=== PATIENT | female | born 1960 | race Caucasian/White ===

== ENCOUNTER 2018-02-01 12:00 | Emergency (ER) | payer MEDICARE, OTHER ==
[2018-02-01] MEDS ORDERED: Sodium Chloride 0.9% 10 ML Syringe FLUSH PRN (12:03)
[2018-02-01] MEDS ORDERED: Sodium Chloride 0.9% 2.5 ML Syringe FLUSH PRN (12:03)
--- NOTE | 2018-02-01 12:06 | EDM.PDOC ---
ED HPI GENERAL MEDICAL PROBLEM - General Stated Complaint: FELL AND HIT HER HEAD Time Seen by Provider: 02/01/18 12:04 Source of Information: Reports: Patient History Limitations: Reports: No Limitations - History of Present Illness INITIAL COMMENTS - FREE TEXT/NARRATIVE: HISTORY AND PHYSICAL: []57-year-old female presenting by EMS History of Present Illness: []Patient was picking up her medications at [facility] slipped on the ice and fell striking the right side of the back of her head Review of Systems: As per history of present illness and below otherwise all systems reviewed and negative. Past medical history: As per history of present illness and as reviewed below otherwise noncontributory. Surgical history: As per history of present illness and as reviewed below otherwise noncontributory. Social history: No reported history of drug or alcohol abuse. Family history: As per history of present illness and as reviewed below otherwise noncontributory. Physical exam: Alert and oriented female answering questions appropriately in full sentences no shortness breath noted. EOMs intact. Pain 7/10. HEENT: Atraumatic, normocehpalic, pupils reactive, negative for conjunctival pallor or scleral icterus, mucous membranes moist, throat clear, neck supple, nontender, trachea midline. Lungs: Clear to auscultation, breath sounds equal bilaterally, chest non tender. Heart: S1S2, regular, negative for clicks, rubs, or JVD. Abdomen: Soft, nondistended, nontender. Negative for masses or hepatossplenmegaly. Negative for costovertebral tenderness. Pelvis: Stable nontender. Genitourinary: Deferred. Rectal: Deferred Extremities: Atraumatic, negative for cords or calf pain. Neurovascular unremarkable. Neuro: Awake, alert, oriented. Cranial nerves II through XII unremarkable. Cerebellum unremarkable. Motor and sensory unremarkable throughout. Exam nonfocal. Discussed negative head CT with the patient she does have some neck strain Diagnostics: [Head CT] Therapeutics: [] Impression: [Mild head injury/concussion Neck pain] Plan: [Discharged to home Soft collar as needed Follow-up with your primary care provider] Definitive disposition and diagnosis as appropriate pending reevaluation and review of above. Onset: Today, Sudden Duration: Minutes: Location: Reports: Head Quality: Reports: Ache Severity: Moderate Improves with: Reports: None Worsens with: Reports: None Left Ankle Pain Score (Numeric/FACES): 4 Right Head Pain Score (Numeric/FACES): 8 right posterior head Pain Score (Numeric/FACES): 7 - Related Data Allergies Allergy/AdvReac Type Severity Reaction Status Date / Time Estrogens Allergy Other Verified 02/01/18 12:04 meperidine [From Demerol] Allergy Other Verified 02/01/18 12:04 NSAIDS (Non-Steroidal Allergy Other Verified 02/01/18 12:03 Anti-Inflamma Home Meds: Home Meds Atenolol 25 mg PO BEDTIME 02/01/18 [History] Desvenlafaxine Succinate [Pristiq] 100 mg PO DAILY 02/01/18 [History] Diazepam [Valium] 2 mg PO TID 02/01/18 [History] Diltiazem HCl [Cardizem] 120 mg PO DAILY 02/01/18 [History] Everolimus [Afinitor] 2.5 mg PO DAILY PRN 02/01/18 [History] Gabapentin [Neurontin] 400 mg PO TID 02/01/18 [History] Hydrocodone/Acetaminophen [[place] 10-325 Tablet] 10 mg PO Q8HR PRN 02/01/18 [ History] Lisinopril 20 mg PO ACBREAKFAST 02/01/18 [History] Methocarbamol [Robaxin] 500 mg PO QID 02/01/18 [History] Pantoprazole Sodium [Protonix] 40 mg PO DAILY 02/01/18 [History] Promethazine [Phenergan] 25 mg PO Q6HR 02/01/18 [History] atorvaSTATin [Lipitor] 40 mg PO BEDTIME 02/01/18 [History] ED ROS GENERAL - Review of Systems Review Of Systems: ROS reveals no pertinent complaints other than HPI. ED EXAM, GENERAL - Physical Exam Exam: See Below (See dictation) Course - Vital Signs Last Recorded V/S: Last Vital Signs Temp 36.9 C 02/01/18 12:08 Pulse 66 02/01/18 12:08 Resp 18 02/01/18 12:08 BP 176/87 H 02/01/18 12:08 Pulse Ox 95 02/01/18 12:08 - Orders/Labs/Meds Orders: Active Orders 24 hr Category Date Time Status Sodium Chloride 0.9% [Saline Flush] Med 03/23/18 12:03 Active 10 ml FLUSH ASDIRECTED PRN Sodium Chloride 0.9% [Saline Flush] Med 02/01/18 12:03 Active 2.5 ml FLUSH ASDIRECTED PRN Medication Orders Sodium Chloride (Saline Flush) 10 ml FLUSH ASDIRECTED PRN PRN Reason: Keep Vein Open Sodium Chloride (Saline Flush) 2.5 ml FLUSH ASDIRECTED PRN PRN Reason: Keep Vein Open Meds: Medications Generic Name Dose Route Start Last Admin Trade Name Yessi PRN Reason Stop Dose Admin Sodium Chloride 10 ml 02/01/18 12:03 Saline Flush FLUSH ASDIRECTED PRN Keep Vein Open Sodium Chloride 2.5 ml 02/01/18 12:03 Saline Flush FLUSH ASDIRECTED PRN Keep Vein Open Departure - Departure Time of Disposition: 13:07 Disposition: Home, Self-Care 01 Condition: Good Clinical Impression: Concussion injury of brain - Discharge Information Instructions: Head Injury, Adult Additional Instructions: The following information is given to patients seen in the emergency department who are being discharged to home. This information is to outline your options for follow-up care. We provide all patients seen in our emergency department with a follow-up referral. The need for follow-up, as well as the timing and circumstances, are variable depending upon the specifics of your emergency department visit. If you don't have a primary care physician on staff, we will provide you with a referral. We always advise you to contact your personal physician following an emergency department visit to inform them of the circumstance of the visit and for follow-up with them and/or the need for any referrals to a consulting specialist. The emergency department will also refer you to a specialist when appropriate. This referral assures that you have the opportunity for followup care with a specialist. All of these measure are taken in an effort to provide you with optimal care, which includes your followup. Under all circumstances we always encourage you to contact your private physician who remains a resource for coordinating your care. When calling for followup care, please make the office aware that this follow-up is from your recent emergency room visit. If for any reason you are refused follow-up, please contact the [facility] emergency department at and asked to speak to the emergency department charge nurse. Soft Collar has been provided for comfort. Neck Follow-up with your primary care provider - My Orders Last 24 Hours: My Active Orders 02/01/18 12:03 Sodium Chloride 0.9% [Saline Flush] 10 ml FLUSH ASDIRECTED PRN Sodium Chloride 0.9% [Saline Flush] 2.5 ml FLUSH ASDIRECTED PRN - Assessment/Plan Last 24 Hours: My Active Orders 02/01/18 12:03 Sodium Chloride 0.9% [Saline Flush] 10 ml FLUSH ASDIRECTED PRN Sodium Chloride 0.9% [Saline Flush] 2.5 ml FLUSH ASDIRECTED PRN
--- NOTE | 2018-02-01 13:02 | CT ---
EXAMINATION: Non contrast CT head. Coronal and sagittal reformats. HISTORY: Pain FINDINGS: No evidence of intra or extra axial hemorrhage, mass, midline shift, hydrocephalus or edema. No hypoattenuation changes in the major vascular territories to suggest acute infarct. No abnormal intracranial calcifications are detected. No evidence of substantial vascular calcificat ions. Paranasal sinuses and mastoid air cells are well aerated without substantial findings. Orbits and gl obes are symmetric. Pituitary fossa appears unremarkable. Small subcutaneous hematoma in the right parietal region. Calvarium is intact. No evidence of skull fracture. IMPRESSION: No acute intracranial findings.
== END 2018-02-01 13:30 | disposition home or self-care (01) ==
LOC: MW.ED 12:00
DX: S06.0X9A Concussion with loss of consciousness of unspecified duration, initial encounter (principal); Z88.8 Allergy status to other drugs, medicaments and biological substances; Z91.09 Other allergy status, other than to drugs and biological substances; Z79.899 Other long term (current) drug therapy; W00.0XXA Fall on same level due to ice and snow, initial encounter; R07.9 Chest pain, unspecified; R06.02 Shortness of breath
CPT/HCPCS: 70450; 70450-26; 99283; 99284-25

== ENCOUNTER 2018-02-27 19:58 | Emergency (ER) | payer OTHER, MEDICARE, MEDICAID ==
--- NOTE | 2018-02-27 20:11 | EDM.PDOC ---
ED HPI GENERAL MEDICAL PROBLEM - General Chief Complaint: Headache Stated Complaint: MIGRAINE Time Seen by Provider: 02/27/18 20:01 Source of Information: Reports: Patient History Limitations: Reports: No Limitations - History of Present Illness INITIAL COMMENTS - FREE TEXT/NARRATIVE: HISTORY AND PHYSICAL: History of present illness: Patient is a 57-year-old female who presents to the emergency room with complaints of neck pain and intermittent headaches. Page and attributes her headaches and neck pain to a fall which occurred on 02/01/2018. At that time she was evaluated through our emergency room and did have a head CT which was normal. Since that time she notices if her head is not straight in line with her cervical spine if she can have pain to her left or right shoulder. "Once I lying back up the pain goes away". She denies any numbness or tingling to her distal extremities. Denies any fever, chills, diaphoresis, change in vision, nausea, or vomiting. Denies any GI or symptoms. Review of systems: As per history of present illness and below otherwise all systems reviewed and negative. Past medical history: As per history of present illness and as reviewed below otherwise noncontributory. Surgical history: As per history of present illness and as reviewed below otherwise noncontributory. Social history: No reported history of drug or alcohol abuse. Family history: As per history of present illness and as reviewed below otherwise noncontributory. Physical exam: General: Well-developed and well-nourished 57-year-old female. Alert and oriented. Nontoxic appearing and in no acute distress. HEENT: Atraumatic, normocephalic, pupils equal and reactive bilaterally, negative for conjunctival pallor or scleral icterus, mucous membranes moist, throat clear, neck supple, nontender, trachea midline. No drooling or trismus noted. No meningeal signs Lungs: Clear to auscultation, breath sounds equal bilaterally, chest nontender. Heart: S1S2, regular rate and rhythm without overt murmur Abdomen: Soft, nondistended, nontender. Negative for masses or hepatosplenomegaly. Negative for costovertebral tenderness. Pelvis: Stable nontender. Genitourinary: Deferred. Rectal: Deferred. C-spine/Back: No pinpoint vertebral tenderness upon palpation. No crepitus, step -off serviced deformities. Patient is fully ambulatory without difficulty or deficits. No fecal or urinary incontinence. Skin: Intact, warm, dry. No lesions or rashes noted. Extremities: Atraumatic, moves all per self, negative for cords or calf pain. Neurovascular unremarkable. Neuro: Awake, alert, oriented. Cranial nerves II through XII unremarkable. Cerebellum unremarkable. Motor and sensory unremarkable throughout. Exam nonfocal. Notes: Patient had a CT scan done on 02/01/2018 of her head, which was normal. We'll do a C-spine x-ray and EKG at this time. Patient does not like to take any NSAIDs due to having "one kidney". Will give Norflex IM as I feel that this has a muscular component, as the patient describes tension in her scalp down her trapezius bilaterally. X-ray shows no acute cervical fracture or malalignment. Did discuss with patient the notations of x-ray. She is currently on multiple pain medications that may cause drowsiness. That along with her inability to take NSAIDs leaves her limited for pain management. We discussed follow-up with her primary care provider for further evaluation and management of this neck pain. He voices understanding and is agreeable to plan of care. She denies any further questions at this time. Diagnostics: EKG, Cervical Spine Xray Therapeutics: Norflex IM Impression: Headache Neck pain Plan: 1. Please follow-up with your primary caregiver as you may need further evaluation of this neck pain (CT or MRI). 2. Tylenol and/or ibuprofen as needed for pain management. Gentle heat and stretching to the neck. You do already have multiple medications for pain and that our muscle relaxers, you may take these as prescribed. 3. Return to the ED as needed and as discussed. Definitive disposition and diagnosis as appropriate pending reevaluation and review of above. head/neck Pain Score (Numeric/FACES): 5 - Related Data Allergies Allergy/AdvReac Type Severity Reaction Status Date / Time Estrogens Allergy Other Verified 02/27/18 20:18 meperidine [From Demerol] Allergy Other Verified 02/27/18 20:18 NSAIDS (Non-Steroidal Allergy Other Verified 02/27/18 20:18 Anti-Inflamma Home Meds: Home Meds Atenolol 25 mg PO BEDTIME 02/01/18 [History] Desvenlafaxine Succinate [Pristiq] 100 mg PO DAILY 02/01/18 [History] Diazepam [Valium] 2 mg PO TID 02/01/18 [History] Diltiazem HCl [Cardizem] 120 mg PO DAILY 02/01/18 [History] Everolimus [Afinitor] 2.5 mg PO DAILY PRN 02/01/18 [History] Gabapentin [Neurontin] 400 mg PO TID 02/01/18 [History] Hydrocodone/Acetaminophen [[place] 10-325 Tablet] 10 mg PO Q8HR PRN 02/01/18 [ History] Lisinopril 20 mg PO ACBREAKFAST 02/01/18 [History] Methocarbamol [Robaxin] 500 mg PO QID 02/01/18 [History] Pantoprazole Sodium [Protonix] 40 mg PO DAILY 02/01/18 [History] Promethazine [Phenergan] 25 mg PO Q6HR 02/01/18 [History] atorvaSTATin [Lipitor] 40 mg PO BEDTIME 02/01/18 [History] SUMAtriptan Succinate [Imitrex] 50 mg PO ASDIRECTED PRN 02/27/18 [History] Past Medical History HEENT History: Reports: None Cardiovascular History: Reports: Hypertension Respiratory History: Reports: None Gastrointestinal History: Reports: None Genitourinary History: Reports: None [employer] History: Reports: None Musculoskeletal History: Reports: Other (See Below) Other Musculoskeletal History: Degnerative Disk disease Neurological History: Reports: None Psychiatric History: Reports: None Endocrine/Metabolic History: Reports: None Hematologic History: Reports: None Immunologic History: Reports: None Oncologic (Cancer) History: Reports: None Dermatologic History: Reports: None - Infectious Disease History Infectious Disease History: Reports: Chicken Pox, Other (See Below) Other Infectious Disease History: childhood - Past Surgical History Head Surgeries/Procedures: Reports: None HEENT Surgical History: Reports: None Cardiovascular Surgical History: Reports: None Respiratory Surgical History: Reports: None GI Surgical History: Reports: None Female Surgical History: Reports: None Endocrine Surgical History: Reports: None Neurological Surgical History: Reports: None Musculoskeletal Surgical History: Reports: None Oncologic Surgical History: Reports: None Dermatological Surgical History: Reports: None Social & Family History - Family History Family Medical History: Noncontributory - Tobacco Use Smoking Status *Q: Never Smoker Second Hand Smoke Exposure: No - Caffeine Use Caffeine Use: Reports: Soda - Recreational Drug Use Recreational Drug Use: No ED ROS GENERAL - Review of Systems Review Of Systems: ROS reveals no pertinent complaints other than HPI. ED EXAM, GENERAL - Physical Exam Exam: See Below (See dictation) Course - Vital Signs Last Recorded V/S: Last Vital Signs Temp 96.9 F 02/27/18 20:15 Pulse 59 L 02/27/18 20:15 Resp 16 02/27/18 20:15 BP 158/77 H 02/27/18 20:15 Pulse Ox 93 L 02/27/18 20:15 - Orders/Labs/Meds Orders: Active Orders 24 hr Category Date Time Status EKG Documentation Completion [RC] STAT Care 02/27/18 20:07 Active Cervical Spine 2V or 3V [CR] Stat Exams 02/27/18 20:19 Taken Meds: Medications Discontinued Medications Generic Name Dose Route Start Last Admin Trade Name Freq PRN Reason Stop Dose Admin Orphenadrine Citrate 60 mg 02/27/18 20:19 02/27/18 20:38 Norflex IM 02/27/18 20:20 60 mg NOW STA Administration Departure - Departure Time of Disposition: 22:00 Disposition: Home, Self-Care 01 Clinical Impression: Neck pain Headache Qualifiers: Headache type: unspecified Headache chronicity pattern: chronic headache Intractability: not intractable Qualified Code(s): R51 - Headache - Discharge Information Referrals: Prashanth Perry [Primary Care Provider] - Forms: ED Department Discharge Additional Instructions: The following information is given to patients seen in the emergency department who are being discharged to home. This information is to outline your options for follow-up care. We provide all patients seen in our emergency department with a follow-up referral. The need for follow-up, as well as the timing and circumstances, are variable depending upon the specifics of your emergency department visit. If you don't have a primary care physician on staff, we will provide you with a referral. We always advise you to contact your personal physician following an emergency department visit to inform them of the circumstance of the visit and for follow-up with them and/or the need for any referrals to a consulting specialist. The emergency department will also refer you to a specialist when appropriate. This referral assures that you have the opportunity for follow-up care with a specialist. All of these measure are taken in an effort to provide you with optimal care, which includes your follow-up. Under all circumstances we always encourage you to contact your private physician who remains a resource for coordinating your care. When calling for follow-up care, please make the office aware that this follow-up is from your recent emergency room visit. If for any reason you are refused follow-up, please contact the [facility] Emergency Department at and asked to speak to the emergency department charge nurse. [facility] [address] [place] [id number] 1. Please follow-up with your primary caregiver as you may need further evaluation of this neck pain (CT or MRI). 2. Tylenol and/or ibuprofen as needed for pain management. Gentle heat and stretching to the neck. You do already have multiple medications for pain and that our muscle relaxers, you may take these as prescribed. 3. Return to the ED as needed and as discussed. - My Orders Last 24 Hours: My Active Orders 02/27/18 20:07 EKG Documentation Completion [RC] STAT 02/27/18 20:19 Cervical Spine 2V or 3V [CR] Stat - Assessment/Plan Last 24 Hours: My Active Orders 02/27/18 20:07 EKG Documentation Completion [RC] STAT 02/27/18 20:19 Cervical Spine 2V or 3V [CR] Stat
--- NOTE | 2018-02-28 09:46 | CR ---
EXAM DATE: 02/27/18 PATIENT'S AGE: 57 Patient: JACINTO REED Facility: [place], [place] Site . Site : 1960 Study: XRay Spine Cervical [id number]/18/2018 9:14:12 PM Ordering Physician: Doctor Banks Final Report: HISTORY: Neck pain, prior fall. TECHNIQUE: Four views of the cervical spine. COMPARISON: No prior. FINDINGS: The dens is intact. Normal articulation of the lateral masses of C1 and C2. There is no acute cervical fracture or cervical malalignment. Vertebral body height and disc height maintained. No abnormal prevertebral soft tissue swelling. IMPRESSION: No acute cervical fracture or malalignment. Dictated by Ar Walker MD @ 02/27/2018 9:55:24 PM Dictated by: Ar Walker MD @ 02/27/2018 21:55:30 (Electronic Signature) Report Signed by Proxy. [email or web address]
== END 2018-02-27 22:13 | disposition home or self-care (01) ==
LOC: MW.ED 19:58
DX: R51 Headache (principal); M54.2 Cervicalgia; I10 Essential (primary) hypertension; Z88.8 Allergy status to other drugs, medicaments and biological substances; Z88.5 Allergy status to narcotic agent; Z79.899 Other long term (current) drug therapy
CPT/HCPCS: 72040; 93005; 96372; 99283; J2360